=== PATIENT | female | born 1990 | race Caucasian/White ===

== ENCOUNTER 2019-12-31 20:07 | Emergency (ER) | payer MEDICAID ==
[~2019-12-31] VITALS: Ht 165.1 cm; Wt 113.4 kg
[2019-12-31] MEDS ORDERED: TRAMADOL HCL50 MG ORAL (20:20)
[2019-12-31] MEDS ORDERED: MEDROL DOSEPAK4 MG ORAL (20:20)
--- NOTE | 2019-12-31 20:22 | Emergency Room Report ---
History of Present Illness General Chief Complaint: Pain Source: Patient, EMS Present Illness HPI Patient presents with complaints of right knee pain Patient reports that she has had ongoing problems has been on Humira Multiple other Medications for the arthritis however nothing seems to be working Patient was recently [facility] and she reports that she was discharged without any medication Reports that prednisone seems to be helping at times denies any fevers or chills denies any fall or trauma Allergies: Coded Allergies: No Known Allergies (Unverified , 12/31/19) COVID-19 Screening Contact w/high risk pt: No Recent Travel to affected area: No Experienced COVID-19 symptoms?: No Patient History Past Medical History: see triage record Now: No Reviewed Nursing Documentation: PMH: Agreed; PSxH: Agreed Nursing Documentation-PMH Past Medical History: No History, Except For Review of Systems All Other Systems: negative except mentioned in HPI Physical Exam Vital Signs Date Time Temp Pulse Resp B/P (MAP) Pulse Ox O2 Delivery O2 Flow Rate FiO2 12/31/19 20:09 98.2 80 16 130/86 (101) 98 Room Air Sp02 EP Interpretation: reviewed, normal General Appearance: well appearing, no apparent distress Head: normocephalic, atraumatic Eyes: bilateral eye PERRL, bilateral eye EOMI ENT: hearing grossly normal, EOM grossly intact Neck: supple Respiratory: lungs clear, no respiratory distress Cardiovascular #1: regular rate, rhythm Gastrointestinal: non tender, soft Genitourinary: no CVA tenderness Musculoskeletal: swelling - Patient does have some swelling and evidence of mild effusion on the right knee, no obvious erythema patient is able to flex and extend without signs of joint irritation Neurologic: alert, oriented x3 Psychiatric: normal inspection Skin: other - As above Lymphatic: no adenopathy Medical Decision Making Diagnostic Impression: Primary Impression: arthralgia Additional Impression: Knee effusion, right ER Course Multiple differentials including but not limited to arthralgia, septic joint, autoimmune type differentials entertained patient has had fairly chronic History with this knee Does not appear to show signs and symptoms consistent with septic joint at this time and will have initial conservative outpatient trial Please note that at the end of her stay the patient was requesting N95 hospital and nursing staff we did notify her that we are not able to give out Patient was offered a regular surgical mask however began cussing at the staff and the nurse And walked out of the emergency room Last Vital Signs Date Time Temp Pulse Resp B/P (MAP) Pulse Ox O2 Delivery O2 Flow Rate FiO2 12/31/19 20:09 98.2 80 16 130/86 (101) 98 Room Air Status: improved Disposition: HOME, SELF-CARE Condition: Stable Scripts Tramadol Hcl* (ULTRAM*) 50 Mg Tablet 50 MG ORAL Q6H PRN for For Pain, #15 TAB 0 Refills Prov: Jose Alcantara DO 12/31/19 Methylprednisolone (Methylprednisolone*) 4MG Dspk 4 MG ORAL DIRECTED for 6 Days, #21 EA 0 Refills Day 1: Two tablets before breakfast, one after lunch, one after dinner, and two at bedtime. If started late in the day, take all six tablets at once or divide into two or three doses, unless otherwise directed by prescriber. Day 2: One tablet before breakfast, one after lunch, one after dinner, and two at bedtime Day 3: One tablet before breakfast, one after lunch, one after dinner, and one at bedtime Day 4: One tablet before breakfast, one after lunch, and one at bedtime Day 5: One tablet before breakfast and one at bedtime Day 6: One tablet before breakfast Prov: Jose Alcantara DO 12/31/19 Referrals: [facility] Naila Nazario [facility] Patient Instructions: Joint Pain Additional Instructions: Patient is provided with the discharge instructions notified to follow up with primary doctor in the next 2-3 days otherwise return to the er with any worsening symptoms. Please note that this report is being documented using [employer] technology. This can lead to erroneous entry secondary to incorrect interpretation by the dictating instrument. Jose Alcantara DO Dec 31, 2019 20:22
[2019-12-31 20:35] VITALS: BP 130/86
== END 2019-12-31 20:35 | disposition home or self-care (01) ==
LOC: EDBD 20:07 → EMR 20:27 → EDBD 20:27 → EMR 20:35
DX: M25.561 Pain in right knee (principal); M25.461 Effusion, right knee
CPT/HCPCS: J7512; Z7502; 99282